=== PATIENT | female | born 1985 | race Caucasian/White ===

== ENCOUNTER 2020-07-30 20:55 | Emergency (ER) | payer OTHER ==
[2020-07-30] MEDS ORDERED: IBUPROFEN800 MG PO (22:12)
[2020-07-30] MEDS ORDERED: PERCOCET 5-3251 EACH PO (22:44)
== END 2020-07-30 22:59 | disposition home or self-care (01) ==
LOC: ER1 20:55
DX: S92.354A Nondisplaced fracture of fifth metatarsal bone, right foot, initial encounter for closed fracture (principal); W17.89XA Other fall from one level to another, initial encounter; Y92.009 Unspecified place in unspecified non-institutional (private) residence as the place of occurrence of the external cause
CPT/HCPCS: 73630; 99283